=== PATIENT | female | born 1990 | race Two or more races ===

== ENCOUNTER 2018-01-04 07:13 | Outpatient (CLI) | payer OTHER | END 2018-01-04 07:17 | disposition home or self-care (01) | LOC: SONOGRAMA 07:13 | DX: E04.2 Nontoxic multinodular goiter (principal) ==

== ENCOUNTER 2020-03-28 17:37 | Outpatient (CLI) | payer OTHER ==
[2020-03-28] MEDS ORDERED: CONCEPT DHA CA1 EACH PO (21:10)
[2020-03-28] MEDS ORDERED: SYNTHROID125 MCG PO (21:10)
== END 2020-03-28 22:08 | disposition home or self-care (01) ==
LOC: OBS/DEL 17:37
PROVIDERS: ATTEND Obstetrics & Gynecology
DX: O26.892 Other specified pregnancy related conditions, second trimester (principal); R07.89 Other chest pain

== ENCOUNTER 2020-07-02 18:54 | Outpatient (CLI) | payer OTHER ==
[~2020-07-02 18:54] MED LIST: CONCEPT DHA CA1 EACH PO; SYNTHROID125 MCG PO
[2020-07-02] MEDS ORDERED: SLOW FE142 MG PO (20:23)
[2020-07-02] MEDS ORDERED: SYNTHROID137 MCG PO (20:23)
[2020-07-02] MEDS ORDERED: PROBIOTIC1 EAC2 PO (20:24)
== END 2020-07-03 09:05 | disposition home or self-care (01) ==
LOC: OBS/DEL 18:54
PROVIDERS: ATTEND Obstetrics & Gynecology
DX: O26.893 Other specified pregnancy related conditions, third trimester (principal); K21.9 Gastro-esophageal reflux disease without esophagitis; K29.60 Other gastritis without bleeding

== ENCOUNTER 2020-08-16 15:15 | Inpatient (IN) | payer OTHER ==
[~2020-08-16] VITALS: Ht 167.6 cm; Wt 72.6 kg
[~2020-08-16 15:15] MED LIST changes: +PROBIOTIC1 EAC2 PO; +SLOW FE142 MG PO; +SYNTHROID137 MCG PO
[2020-08-17] MEDS ORDERED: DOLOGESIC 500-1 EACH PO (20:34)
[2020-08-17] MEDS ORDERED: DESMOPRESS10 MCG/0.1 NS (20:35)
== END 2020-08-20 13:06 | disposition home or self-care (01) | DRG 806 ==
LOC: LDR 08-17 19:31 → SURG-SUITE 08-18 14:13 → OB/GYN 09-01 15:15
PROVIDERS: ADMIT Obstetrics & Gynecology; ATTEND Obstetrics & Gynecology
PROC: 10E0XZZ Delivery of Products of Conception, External Approach (ICD-10-PCS; principal; 2020-08-17)
PROC: 0W8NXZZ Division of Female Perineum, External Approach (ICD-10-PCS; 2020-08-17)
PROC: 4A1HXFZ Monitoring of Products of Conception, Cardiac Rhythm, External Approach (ICD-10-PCS; 2020-08-17)
DX: O99.12 Other diseases of the blood and blood-forming organs and certain disorders involving the immune mechanism complicating childbirth (principal); D68.0 Von Willebrand disease; Z37.0 Single live birth; Z3A.39 39 weeks gestation of pregnancy; Z20.828 Contact with and (suspected) exposure to other viral communicable diseases

== ENCOUNTER 2021-02-05 11:53 | Outpatient (CLI) | payer OTHER ==
[~2021-02-05 11:53] MED LIST changes: +DESMOPRESS10 MCG/0.1 NS; +DOLOGESIC 500-1 EACH PO
== END 2021-02-05 12:07 | disposition home or self-care (01) ==
LOC: LAB 11:53
PROVIDERS: ATTEND Internal Medicine Hematology & Oncology
DX: C73 Malignant neoplasm of thyroid gland (principal); D50.8 Other iron deficiency anemias; R79.89 Other specified abnormal findings of blood chemistry; I10 Essential (primary) hypertension; R74.02 Elevation of levels of lactic acid dehydrogenase [LDH]; K76.89 Other specified diseases of liver; D68.8 Other specified coagulation defects; D69.1 Qualitative platelet defects

== ENCOUNTER 2022-09-04 15:09 | Emergency (ER) | payer OTHER ==
[~2022-09-04] VITALS: Ht 167.6 cm; Wt 70.3 kg
[2022-09-04] MEDS ORDERED: SYNTHROID112 MCG PO (15:25)
== END 2022-09-04 18:40 | disposition home or self-care (01) ==
LOC: ER 15:09
DX: R10.13 Epigastric pain (principal); Z88.6 Allergy status to analgesic agent

== ENCOUNTER 2022-11-22 09:35 | Emergency (ER) | payer OTHER ==
[~2022-11-22] VITALS: Ht 167.6 cm; Wt 70.3 kg
[~2022-11-22 09:35] MED LIST changes: +SYNTHROID112 MCG PO
== END 2022-11-22 11:37 | disposition home or self-care (01) ==
LOC: ER 09:35
DX: S92.911A Unspecified fracture of right toe(s), initial encounter for closed fracture (principal); W22.8XXA Striking against or struck by other objects, initial encounter; Y93.9 Activity, unspecified; Y92.9 Unspecified place or not applicable; Y99.9 Unspecified external cause status; Z88.6 Allergy status to analgesic agent

== ENCOUNTER 2024-09-25 08:23 | Emergency (ER) | payer OTHER ==
[~2024-09-25] VITALS: Ht 167.6 cm; Wt 68.0 kg
[2024-09-25] MEDS ORDERED: BUTALB/ACETAMINOPHEN/CAFFEINE 1 TAB TABLET PO ONE ×2 (10:00→10:02)
[2024-09-25] MEDS ORDERED: MONTELUKAST SODIUM 10 MG TABLET PO ONE (10:00)
[2024-09-25] MEDS ORDERED: BENZONATATE 200 MG CAPSULE PO ONE (10:00)
[2024-09-25 11:14] LABS: HEMATOCRIT 38.5 % (36.0-45.00); HEMOGLOBIN 13.3 g/dL (12.0-15.00); MEAN CELL VOLUME 91.7 fL (80.00-100.00); MEAN CORPUSCULAR HEMOGLOBIN 31.6 pg (27.00-32.0); MEAN CORPUSCULAR HGB CONC 34.5 g/dl (32.0-36.0); PLATELET COUNT 266 K/uL (150-450); RED CELL DISTRIBUTION WIDTH 13.2 % (11.5-14.5)
[2024-09-25] MEDS ORDERED: BENZONATATE200 M1 PO (11:29)
[2024-09-25] MEDS ORDERED: PEPCID AC20 MG PO (11:29)
[2024-09-25] MEDS ORDERED: LEVALBUTER0.63 MG/3 IH (11:29)
== END 2024-09-25 11:39 | disposition home or self-care (01) ==
LOC: ER 08:26
PROVIDERS: General Practice
DX: U07.1 COVID-19 (principal); J00 Acute nasopharyngitis [common cold]; Z88.6 Allergy status to analgesic agent

== ENCOUNTER 2025-01-23 07:48 | Emergency (ER) | payer OTHER ==
[~2025-01-23] VITALS: Ht 167.6 cm; Wt 68.0 kg
[~2025-01-23 07:48] MED LIST changes: +BENZONATATE200 M1 PO; +LEVALBUTER0.63 MG/3 IH; +PEPCID AC20 MG PO
[2025-01-23] MEDS ORDERED: ROSUVASTATIN CAL5 MG (07:54)
[2025-01-23] MEDS ORDERED: GABAPENTIN 100 MG CAPSULE PO ONE (08:30)
== END 2025-01-23 12:54 | disposition home or self-care (01) ==
LOC: ER 08:05
DX: G56.01 Carpal tunnel syndrome, right upper limb (principal); G89.11 Acute pain due to trauma; M25.531 Pain in right wrist; I10 Essential (primary) hypertension; Z88.6 Allergy status to analgesic agent